=== PATIENT | female | born 1995 | race Two or more races ===

== ENCOUNTER 2019-02-09 08:34 | Outpatient (CLI) | payer OTHER | END 2019-02-09 08:38 | disposition home or self-care (01) | LOC: SONOGRAMA 08:34 | DX: E04.1 Nontoxic single thyroid nodule (principal) ==

== ENCOUNTER 2019-03-05 08:21 | Outpatient (CLI) | payer OTHER | END 2019-03-05 14:58 | disposition home or self-care (01) | LOC: SONOGRAMA 08:21 | DX: R59.0 Localized enlarged lymph nodes (principal) ==

== ENCOUNTER → 2019-03-31 07:33 | Outpatient (CLI) | payer OTHER | END | disposition home or self-care (01) | LOC: LAB 07:33 | DX: E06.3 Autoimmune thyroiditis (principal); R59.1 Generalized enlarged lymph nodes; D50.8 Other iron deficiency anemias; D51.8 Other vitamin B12 deficiency anemias; D51.1 Vitamin B12 deficiency anemia due to selective vitamin B12 malabsorption with proteinuria; D51.0 Vitamin B12 deficiency anemia due to intrinsic factor deficiency; E03.8 Other specified hypothyroidism; I10 Essential (primary) hypertension ==